=== PATIENT | male | born 1960 | race Caucasian/White ===

== ENCOUNTER 2024-12-31 06:41 | Day surgery (SDC) | payer BC, OTHER ==
[2024-12-31] MEDS ORDERED: propofoL 500 MG/50 ML 50 ML ONE (06:49)
[2024-12-31] MEDS: Lactated Ringers 1,000 ML IV SCH (07:06)
[2024-12-31] MEDS ORDERED: Propofol 200 MG/20 ML SDV ONE (08:24)
[2024-12-31 09:39] VITALS: BP 121/83; PULSE 52
== END 2024-12-31 09:17 | disposition home or self-care (01) ==
LOC: MW.SDS 06:41
PROVIDERS: ATTEND Surgery
DX: Z12.11 Encounter for screening for malignant neoplasm of colon (principal); D12.2 Benign neoplasm of ascending colon; D12.6 Benign neoplasm of colon, unspecified; K57.30 Diverticulosis of large intestine without perforation or abscess without bleeding; K64.8 Other hemorrhoids; E66.9 Obesity, unspecified; Z87.891 Personal history of nicotine dependence; Z68.29 Body mass index [BMI] 29.0-29.9, adult
CPT/HCPCS: 45385; J2704; J7120; 00811